=== PATIENT | male | born 1945 | race American Indian/Alaskan Native ===

== ENCOUNTER 2016-11-22 07:35 | Day surgery (SDC) | payer OTHER ==
[2016-11-19 14:26] VITALS: BMI 29.8
[2016-11-22 08:20] LABS: HEMATOCRIT 42.9 % (42.0-52.0); MEAN CELL VOLUME 90.3 fL (80.0-105.0); MEAN CORPUSCULAR HEMOGLOBIN 30.3 pg (25.0-35.0); MEAN CORPUSCULAR HGB CONC 33.6 g/dl (31.0-37.0); MEAN PLATELET VOLUME 10.2 fl (7.0-11.0); RED CELL DISTRIBUTION WIDTH 13.3 % (11.5-14.5); WHITE BLOOD COUNT 3.7 10^3/ul (4.5-11.0)
[2016-11-22 08:30] LABS: BLOOD UREA NITROGEN 15 mg/dL (7-21); CARBON DIOXIDE 27 mmol/L (21-33); CHLORIDE 102 mmol/L (95-110); GFR AFRICAN-AMERICAN > 60; GLUCOSE,RANDOM 105 mg/dL (70-110); POTASSIUM 4.1 mmol/L (3.6-5.0); SODIUM 138 mmol/L (132-148)
[2016-11-22 08:32] LABS: PARTIAL THROMBOPLASTIN TIME 25.9 Seconds (23.7-30.8)
[2016-11-22] MEDS ORDERED: Iodixanol 320 MG/ML 200 ML BOTTLE IV ONE (09:43)
[2016-11-22] MEDS ORDERED: Lidocaine 2% Inj (20ml) ONE (09:43)
[2016-11-22] MEDS ORDERED: Midazolam 2 MG/2 ML VIAL ONE ×2 (09:57→10:30)
[2016-11-22] MEDS ORDERED: Sodium Chloride 0.9% 1,000 ML IV SCH (11:00)
[2016-11-22 11:20] VITALS: TEMP 97.8
--- NOTE | 2016-11-22 11:24 | CARDCATH ---
PROCEDURE DATE: 11/22/2016 HISTORY: The patient is a 71-year-old male who presents with an abnormal EKG. He complains of chest pain. He suffers from hypercholesterolemia. He underwent a stress test, which showed multiple defects. Because of this, cardiac catheterization was recommended. PROCEDURE: Left heart catheterization with coronary angiography and left ventriculogram. The right femoral artery was cannulated with a 6-Danish sheath. There were no complications. The findings on catheterization revealed a left ventricle that contracted normally. Estimated ejecti on fraction is 60%. The coronary arteries revealed a right dominant circulation. The RCA revealed an ectatic area in the proximal extending into the midportion of the RCA resulting i n a JERMAN 2 flow. There was diffuse atherosclerosis throughout the RCA. The left main artery was unremarkable. The LAD revealed an ectatic area in the proximal portion with a 50% stenosis in the ostium of the kat gonal vessel as well as diffuse atherosclerosis. The circumflex artery revealed an ectatic area in the proximal circumflex with diffuse atherosclerosi s with JERMAN 2 flow down the LAD and RCA. Angio-Seal was used to close the femoral artery site. The patient tolerated the procedure well. IN SUMMARY: The procedure revealed diffuse atherosclerosis throughout his coronary tree with ectatic regions in the proximal right coronary artery, proximal left anterior descending and proximal circum flex artery resulted in JERMAN 2 flow down each of the arteries. There is also a 50% ostial diagonal s tenosis noted. Given these findings, the patient's treatment should be medical therapy. A strict cardiac risk reduc tion program would be necessary. Armaan Anna MD cc: [id number] TT: 11/22/2016 11:24:10 ct
[2016-11-22 15:05] VITALS: BP 126/74; PULSE 53; RESP 20; O2SAT 100
--- NOTE | 2016-11-23 02:23 | CARD ---
APPROVED REPORT EKG Measurement Heart [id number] IN [id number] <Conclusion> Sinus bradycardia with premature atrial complexes Nonspecific T wave abnormality Abnormal ECG
== END 2016-11-22 17:30 | disposition home or self-care (01) ==
LOC: CATH 07:35 → MERGE 07:35 → CATH 17:30
PROVIDERS: ATTEND Internal Medicine Cardiovascular Disease
DX: I25.10 Atherosclerotic heart disease of native coronary artery without angina pectoris (principal); E78.00 Pure hypercholesterolemia, unspecified
CPT/HCPCS: 36415; 80048; 85027; 85610; 85730; 86850; 86900; 93005; 93458; 99152; C1760; C1769; C2629; J1644; J2250; J3010; J7040 ×2